=== PATIENT | female | born 1975 | race African-American/Black ===

== ENCOUNTER → 2017-01-20 | Outpatient (CLI) | payer SELFPAY ==
[~2017-01-20] MED LIST: FLAGYL PO; LAXATIVE15 MG PO
== END | disposition home or self-care (01) ==
LOC: CBAR 15:33
DX: Z01.818 Encounter for other preprocedural examination (principal); E66.01 Morbid (severe) obesity due to excess calories
CPT/HCPCS: G0463

== ENCOUNTER → 2017-02-13 | Outpatient (CLI) | payer OTHER ==
--- NOTE | ~2017-02-13 | EKG ---
PATIENT: TESS MCKEON UNIT #: [id number] Ventricular Rate: 87 BPM Atrial Rate: 87 BPM P-R Interval: 146 ms QRS Duration: 68 ms Q-T Interval: 378 ms QTC Calculation(Bezet): 454 ms P Addison: 58 degrees Calculated R Addison: 39 degrees Calculated T Addison: 8 degrees Diagnosis Line: Normal sinus rhythm Diagnosis Line: Low voltage QRS Diagnosis Line: Borderline ECG Diagnosis Line: No previous ECGs available Diagnosis Line: Confirmed by ALTAGRACIA MILLER MD ([id number]) on 02/13/2017 Diagnosis Line: 7:22:43 PM INTERPRETING MD: PAUL VILLANUEVA
--- NOTE | ~2017-02-13 | CR97 ---
[facility] A Service of [facility] & [facility] RADIOLOGY TEXT RESULTS PATIENT: TESS MCKEON LOCATION: [facility] : 77 UNIT #: [id number] AGE: [address]: Kalpesh Jones III, MD SEX: F ORDER DR: [id number] [facility] [address] [place], [place] [address] [id number] O MR#: [id number] Acc #: [id number] NAME: TESS MCKEON : 1975 SEX: F STUDY DATE/TIME: 02/13/2017 8:28 UNIT: [facility] ROOM: STUDY DESCRIPTION: CR Esophagram Attending Physician: Kalpesh Jones III, M.D. Referring Physician: Kalpesh Jones III, M.D. Ordering Physician: Kalpesh Jones III, M.D. Primary Care Physician: Primary Care Physician No MEDICAL IMAGING REPORT This report is preliminary unless electronic signature is present EXAM Esophagram. INDICATIONS Preoperative planning for lap-band placement. FINDINGS Contrast images of the esophagus were obtained. There is no significant mucosal abnormalities within the esophagus. There is no stricture, mass, extrinsic mass effect. There is mild esophageal dysmotility in the distal one-third of the esophagus. Gastroesophageal junction is within normal limits. 13 barium tablet os swallowed without difficulty. IMPRESSION Mild esophageal dysmotility in the distal one-third of the esophagus. Otherwise negative. Fluoroscopic time 1.3 minutes 8 images acquired. Dictated by... Inocente Dumont M.D. THIS IS AN ELECTRONICALLY VERIFIED REPORT Inocente Dumont M.D. at 02/13/2017 3:13 PM Loretta TD: 02/13/2017 12:51 JOB #: [id number] MEDICAL IMAGING REPORT Page 1 of 1 COPY
--- NOTE | ~2017-02-13 | CR63 ---
[facility] A Service of [facility] & [facility] RADIOLOGY TEXT RESULTS PATIENT: TESS MCKEON LOCATION: [facility] : 77 UNIT #: [id number] AGE: [address]: Kalpesh Jones III, MD SEX: F ORDER DR: [id number] [facility] [address] [place], [place] [address] [id number] O MR#: [id number] Acc #: [id number] NAME: TESS MCKEON : 1975 SEX: F STUDY DATE/TIME: 02/13/2017 8:14 UNIT: [facility] ROOM: STUDY DESCRIPTION: CR Chest 2 View Attending Physician: Kalpesh Jones III, M.D. Referring Physician: Kalpesh Jones III, M.D. Ordering Physician: Kalpesh Jones III, M.D. Primary Care Physician: Primary Care Physician No MEDICAL IMAGING REPORT This report is preliminary unless electronic signature is present EXAM Chest PA and lateral, 02/13/2017 HISTORY Morbid obesity, preop laparoscopic gastric banding. Shortness of breath on exertion today. FINDINGS PA and lateral examination of the chest upright shows a good expansion of the parenchyma with a normal distribution of the pulmonary vascularity. There is no indication of congestion, effusion, infiltrate, tumor, or nodular density. The pleural reflections and diaphragmatic contours are normal. The cardiac silhouette and mediastinal anatomy is within normal limits. IMPRESSION Normal chest. Dictated by... Ilia Sloan M.D. THIS IS AN ELECTRONICALLY VERIFIED REPORT Ilia Sloan M.D. at 02/13/2017 4:41 PM TAMIKA/paz TD: 02/13/2017 09:36 JOB #: [id number] MEDICAL IMAGING REPORT Page 1 of 1 COPY
[2017-02-13 09:28] LABS: HEMATOCRIT 43.7 % (35.0-45.0); MEAN CELL VOLUME 87.4 FL (83-96); MEAN CORPUSCULAR HEMOGLOBIN 27.9 PG (28-34); MEAN PLATELET VOLUME 9.9 FL (6.5-11.5); RED CELL DISTRIBUTION WIDTH 14.5 % (11.0-15.5); WHITE BLOOD COUNT 6.7 X10e3 (4.0-10.5)
[2017-02-13 10:45] LABS: ALBUMIN SERUM 3.6 g/dL (3.5-5.0); BILIRUBIN,TOTAL 0.5 mg/dL (0.2-2.0); BUN/CREATININE RATIO 13.33; CALCIUM SERUM 8.8 mg/dL (8.4-10.2); CREATININE SERUM 0.9 mg/dL (0.6-1.4); GLOM FILT RATE Estimated 92.1 mL/min (>60); POTASSIUM 4.8 mmol/L (3.5-5.1); PROTEIN TOTAL SERUM 6.4 g/dL (6.0-8.3)
== END | disposition home or self-care (01) ==
LOC: CRAD 07:50
PROVIDERS: Surgery
DX: Z01.818 Encounter for other preprocedural examination (principal); K22.4 Dyskinesia of esophagus
CPT/HCPCS: 36415; 71020; 74220; 80053; 80061; 84443; 85027; 93005

== ENCOUNTER → 2017-02-25 | Day surgery (SDC) | payer OTHER ==
--- NOTE | ~2017-02-25 | CR7 ---
[facility] A Service of [facility] & [facility] RADIOLOGY TEXT RESULTS PATIENT: TSES MCKEON LOCATION: [facility] : 77 UNIT #: [id number] AGE: [address]: Kalpesh Jones III, MD SEX: F ORDER DR: [id number] [facility] [address] [place], [place] [address] [id number] O MR#: [id number] Acc #: [id number] NAME: TESS MCKEON : 1975 SEX: F STUDY DATE/TIME: 02/25/2017 11:29 UNIT: [facility] ROOM: STUDY DESCRIPTION: CR Abdomen Single AP View Attending Physician: Kalpesh Jones III, M.D. Ordering Physician: Kalpesh Jones III, M.D. Primary Care Physician: Primary Care Physician No MEDICAL IMAGING REPORT This report is preliminary unless electronic signature is present EXAM KUB HISTORY Postop lap-band surgery. TECHNIQUE Single view of the abdomen was obtained. FINDINGS Postoperative changes of lap-band surgery are noted. The angle of band with respect to the long axis of the spine is 53 degrees. No kinking of the catheter is noted. IMPRESSION Satisfactory postoperative appearance. STAT * RESULT Dictated by... Eduardo Toribio M.D. THIS IS AN ELECTRONICALLY VERIFIED REPORT Eduardo Toribio M.D. at 02/26/2017 2:15 PM Adriel TD: 02/25/2017 11:45 JOB #: [id number] MEDICAL IMAGING REPORT Page 1 of 1 COPY
--- NOTE | ~2017-02-25 | OR ---
Unit #: [id number] #: [id number] Patient: TESS MCKEON [id number] [facility] [address] [place], [place] [address] [id number] O MR#: [id number] NAME: TESS MCKEON ROOM: Date of Procedure: 02/25/2017 Admission Date: 02/25/2017 Surgeon: Kalpesh Jones III, M.D. : 1975 Attending Physician: Kalpesh Jones III, M.D. Primary Care Physician: Primary Care Physician No OPERATIVE REPORT PREOPERATIVE DIAGNOSIS Chronic morbid obesity. POSTOPERATIVE DIAGNOSIS Chronic morbid obesity. PROCEDURE PERFORMED Laparoscopic adjustable gastric banding (standard band with regular port). WASHATERIA ATTENDANT Dr. Yevgeniy Edwards. SPECIMENS None. COMPLICATIONS None apparent. ESTIMATED BLOOD LOSS Minimal. ANESTHESIA General endotracheal tube anesthesia. FINDINGS She has an extremely thick abdominal wall, may require fluoroscopic adjustments in the future. INDICATIONS FOR PROCEDURE This is a 41-year-old lady, who has chronic morbid obesity with a BMI of 62 and no specific comorbidities. She has been through the bariatric program at [facility] and understands the risks and benefits of the procedure. DESCRIPTION OF PROCEDURE After consent was obtained, including the risks and benefits of slippage, erosion, port dysfunction, and possible failure of weight loss due to noncompliance, the patient was taken to the operating room and placed in the supine position. General anesthetic was administered and the abdomen was prepped and draped in standard surgical fashion. I began by making a 2 cm incision just above and to the left of the Unit #: [id number] #: [id number] Patient: TESS MCKEON umbilicus. I used a Visiport to enter the peritoneal cavity without any difficulty. C02 pneumoperitoneum was then established. Next, I placed a 5 mm port in the right upper quadrant, a 5 mm Rashard liver retractor in the subxiphoid region to provide exposure of the gastroesophageal junction. Next, a 10 mm port was placed in the left upper quadrant and a 5 mm port was placed in the left lateral subcostal region. I began by performing an examination of the GE junction to evaluate for a hiatal hernia. We then scored the peritoneal attachments overlying the angle of His. I then opened up the clear space in the gastrohepatic ligament, and then using 2 blunt graspers, I identified the small fat pad crossing over the right crura. I swept the fat anterior to the crura off the crura and using the pars flaccida, I created a retrogastric tunnel where the blunt grasper exited at the angle of His. Once I had made this tunnel safely, I then inserted an Allergan AP band into the abdominal cavity. This adjustable gastric band was then place around the upper part of the stomach and fastened and buckled anteriorly. We then tacked the lateral fundus over the band to the proximal pouch with 2 interrupted 0 Ethibond sutures. I then used a third stitch to imbricate the excess anterior stomach by going from the lesser curvature up towards where the last stitch was placed. We then had excellent hemostasis. I removed the Rashard liver retractor. We then removed the port tubing through the initial port incision. The rest of the ports were removed, and the pneumoperitoneum was released. I then left a small tail on the tubing. We then attached the port to the excess band tubing. We placed a piece of Prolene mesh along the back side of the port and used a Prolene stitch to anchor this mesh in place. We then trimmed the excess mesh so that just a small footprint of mesh was in place behind the port. I then inserted the tubing back into the abdominal cavity, and we placed the port into a small pocket that was made just inferior to where our initial port incision was made. The mesh was in direct contact with the fascia, and this will scar in place to hold the port in place. We then injected all the port sites with 0.25% plain Marcaine, and I reapproximated the skin edges with interrupted 4-0 Vicryl subcuticular sutures. Steri-strips were then applied. The patient tolerated the procedure without any problems and returned to the recovery room in stable condition. Dictated by... Kalpesh Jones III, M.D. VCL/luis antonio TD: 02/25/2017 22:12 JOB #: [id number] CC: Jac Oliveira M.D. OPERATIVE REPORT Page 1 of 1 X Kalpesh Jones III, MD PROCEDURE OPERATIVE NOTE
== END | disposition home or self-care (01) ==
LOC: CSUR 08:01
DX: E66.01 Morbid (severe) obesity due to excess calories (principal); K21.9 Gastro-esophageal reflux disease without esophagitis; D25.9 Leiomyoma of uterus, unspecified; E78.5 Hyperlipidemia, unspecified; Z68.43 Body mass index [BMI] 50.0-59.9, adult; Z90.710 Acquired absence of both cervix and uterus; Z68.44 Body mass index [BMI] 60.0-69.9, adult; Z86.2 Personal history of diseases of the blood and blood-forming organs and certain disorders involving the immune mechanism; Z90.721 Acquired absence of ovaries, unilateral
CPT/HCPCS: 74000; C1781; J0330; J0690; J1650; J1885; J2250; J2405; J2710; J3010